=== PATIENT | female | born 1960 | race Caucasian/White ===

== ENCOUNTER → 2018-02-06 | Outpatient (CLI) | payer OTHER | LOC: LAB 17:52 → LAB SHORT 17:52 | DX: L03.116 Cellulitis of left lower limb (principal); Z86.14 Personal history of Methicillin resistant Staphylococcus aureus infection | CPT/HCPCS: 87070; 87075; 87077; 87186; 87205 ==

== ENCOUNTER → 2018-02-15 | Outpatient (CLI) | payer OTHER | LOC: LAB 12:26 → LAB SHORT 12:26 | DX: R15.0 Incomplete defecation (principal) | CPT/HCPCS: 87338 ==

== ENCOUNTER 2018-08-22 11:25 | Day surgery (SDC) | payer OTHER ==
[~2018-08-22] VITALS: Ht 162.6 cm; Wt 68.2 kg
[~2018-08-22 11:25] MED LIST: ALBU90OI61 INH; ATOR40TA PO; IBU600 MG PO; Loratadine10 MG PO; METH10 PO; OMEPRAZOLE MAGN20 MG PO; PROM25 PO; Senno8.6 MG PO; VITAMIN D31000 UNIT PO; [UNRECOGNIZED DRUG - CODE] PO
--- NOTE | 2018-08-22 12:34 | NUR ---
08/22/18 1234 Vanessa Garcia 3 MISSED IV RW BY JOANA VALVE RH BY RN COULD NOT FIND VEIN DEISY BY JOANA COULD NOT FIND JAYCE
== END 2018-08-22 13:51 | disposition home or self-care (01) ==
LOC: ORSCSDS 11:25
PROVIDERS: Student in an Organized Health Care Education/Training Program
PROC: 0DB58ZX Excision of Esophagus, Via Natural or Artificial Opening Endoscopic, Diagnostic (ICD-10-PCS; principal; 2018-08-22 12:45)
PROC: 0DBN8ZX Excision of Sigmoid Colon, Via Natural or Artificial Opening Endoscopic, Diagnostic (ICD-10-PCS; principal; 2018-08-22 12:45)
PROC: 0DB68ZX Excision of Stomach, Via Natural or Artificial Opening Endoscopic, Diagnostic (ICD-10-PCS; principal; 2018-08-22 12:45)
PROC: 0DB98ZX Excision of Duodenum, Via Natural or Artificial Opening Endoscopic, Diagnostic (ICD-10-PCS; principal; 2018-08-22 12:45)
PROC: 0DBP8ZX Excision of Rectum, Via Natural or Artificial Opening Endoscopic, Diagnostic (ICD-10-PCS; principal; 2018-08-22 12:45)
DX: R11.2 Nausea with vomiting, unspecified (principal); K21.0 Gastro-esophageal reflux disease with esophagitis; K44.9 Diaphragmatic hernia without obstruction or gangrene; D12.5 Benign neoplasm of sigmoid colon; K62.1 Rectal polyp; K62.3 Rectal prolapse; R15.0 Incomplete defecation; Z86.010 Personal history of colon polyps; J44.9 Chronic obstructive pulmonary disease, unspecified; B18.2 Chronic viral hepatitis C; I10 Essential (primary) hypertension; F11.20 Opioid dependence, uncomplicated; F17.210 Nicotine dependence, cigarettes, uncomplicated
CPT/HCPCS: 88305; 88342; J7120

== ENCOUNTER 2018-11-22 20:09 | Emergency (ER) | payer OTHER ==
[~2018-11-22] VITALS: Ht 160 cm; Wt 64.9 kg
[2018-11-22] MEDS ORDERED: EPIPEN0.3 MG/0.3 IM (20:54)
[2018-11-22] MEDS ORDERED: MIRALAX119 GM PO (20:55)
== END 2018-11-22 21:45 | disposition home or self-care (01) ==
LOC: ER 20:09
DX: M79.674 Pain in right toe(s) (principal); F32.9 Major depressive disorder, single episode, unspecified; F41.9 Anxiety disorder, unspecified; K21.9 Gastro-esophageal reflux disease without esophagitis; J44.9 Chronic obstructive pulmonary disease, unspecified; F17.210 Nicotine dependence, cigarettes, uncomplicated; M19.90 Unspecified osteoarthritis, unspecified site; M79.7 Fibromyalgia; Z87.01 Personal history of pneumonia (recurrent); Z88.5 Allergy status to narcotic agent; Z91.030 Bee allergy status; Z91.048 Other nonmedicinal substance allergy status; Z86.19 Personal history of other infectious and parasitic diseases; Z79.899 Other long term (current) drug therapy
CPT/HCPCS: 73660; 99283-25

== ENCOUNTER → 2019-03-12 | Outpatient (CLI) | payer OTHER ==
[~2019-03-12] MED LIST changes: +EPIPEN0.3 MG/0.3 IM; +MIRALAX119 GM PO
[2019-03-12 13:27] LABS: Source, Urine Clean Catch
[2019-03-12 18:38] LABS: Bilirubin, Urine Neg (Neg); Blood, Urine 1+ (Neg); Glucose Qualitative, Urine Neg (Neg); Ketones, Urine Neg (Neg); Leukocyte Esterase, Urine 1+ (Neg); Nitrite, Urine Neg (Neg); Protein, Urine 1+ (Neg); Urobilinogen, Urine NORM (Normal)
[2019-03-12 18:49] LABS: Appearance, Urine Hazy (Clear); Color, Urine Yellow (P-Yellow)
[2019-03-12 18:51] LABS: Bacteria Mod /hpf; Mucus Light (0-Heavy); Squamous Epithelial Cells Few /hpf (Few)
== END | disposition home or self-care (01) ==
LOC: LAB 13:25 → LAB SHORT 13:25
PROVIDERS: Nurse Practitioner Family
DX: R10.9 Unspecified abdominal pain (principal)
CPT/HCPCS: 81001

== ENCOUNTER → 2019-03-13 | Outpatient (CLI) | payer OTHER | END | disposition home or self-care (01) | LOC: PLD 07:46 → LAB SHORT 07:46 | DX: L60.2 Onychogryphosis (principal); B35.1 Tinea unguium | CPT/HCPCS: 88305; 88312 ==

== ENCOUNTER → 2019-05-28 | Outpatient (CLI) | payer OTHER ==
[2019-05-30 16:07] LABS: HPV 16 Negative (Negative); HPV 18 Negative (Negative); HPV OTHER HR TYPES Negative (Negative)
== END | disposition home or self-care (01) ==
LOC: LAB 19:05 → LAB SHORT 19:05
PROVIDERS: Nurse Practitioner Family
DX: Z12.4 Encounter for screening for malignant neoplasm of cervix (principal)
CPT/HCPCS: 87624; G0123

== ENCOUNTER → 2019-06-30 | Outpatient (CLI) | payer OTHER ==
[2019-07-01 13:42] LABS: Stool Occult Bld Immuno 1 Negative (NEGATIVE)
== END | disposition home or self-care (01) ==
LOC: LAB SHORT 12:00 → LAB 12:00
PROVIDERS: Nurse Practitioner Family
DX: Z12.11 Encounter for screening for malignant neoplasm of colon (principal)
CPT/HCPCS: G0328

== ENCOUNTER → 2020-06-18 | Outpatient (CLI) | payer OTHER ==
[2020-06-18 14:57] LABS: Appearance, Urine Cloudy (Clear); Blood, Urine 5+ (Neg); Color, Urine Brown (P-Yellow); Glucose Qualitative, Urine Neg (Neg); Ketones, Urine 1+ (Neg); Leukocyte Esterase, Urine 2+ (Neg); Nitrite, Urine Pos (Neg); Protein, Urine 3+ (Neg); Urobilinogen, Urine 1+ (Normal)
[2020-06-18 15:03] LABS: Bilirubin, Urine 1+ (Neg)
[2020-06-18 15:05] LABS: Bacteria Not Seen /hpf; Calcium Oxalate Crystals Few /hpf; Red Blood Cells, Urine TNTC /hpf (0-2); Squamous Epithelial Cells Few /hpf (Few)
== END ==
LOC: LAB SHORT 10:07
PROVIDERS: Nurse Practitioner Family
DX: R30.0 Dysuria (principal)
CPT/HCPCS: 81001; 87086

== ENCOUNTER → 2020-10-20 | Outpatient (CLI) | payer OTHER ==
[2020-10-20 12:12] LABS: Source, Urine Clean Catch
[2020-10-20 18:02] LABS: Appearance, Urine Cloudy (Clear); Blood, Urine 5+ (Neg); Color, Urine Brown (P-Yellow); Glucose Qualitative, Urine Neg (Neg); Ketones, Urine 1+ (Neg); Leukocyte Esterase, Urine 2+ (Neg); Nitrite, Urine Pos (Neg); Protein, Urine 4+ (Neg); Specific Gravity, Urine 1.025 (1.003-1.022); Urobilinogen, Urine 1+ (Normal)
[2020-10-20 18:42] LABS: Bilirubin, Urine 1+ (Neg)
[2020-10-20 18:44] LABS: Red Blood Cells, Urine TNTC /hpf (0-2)
[2020-10-20 18:46] LABS: Bacteria Many /hpf; Calcium Oxalate Crystals Many /hpf; Squamous Epithelial Cells Mod /hpf (Few)
== END | disposition home or self-care (01) ==
LOC: LAB 12:10 → LAB SHORT 12:10 → LAB FUT 10-18 15:00
PROVIDERS: Urology
DX: N13.5 Crossing vessel and stricture of ureter without hydronephrosis (principal)
CPT/HCPCS: 81001; 87086

== ENCOUNTER 2021-11-22 09:42 | Day surgery (SDC) | payer OTHER ==
[~2021-11-22] VITALS: Ht 160 cm; Wt 66.6 kg
[~2021-11-22 09:42] MED LIST changes: +ALBU90OI INH; +ALORA TOP; +ATORVASTATIN CA80 M1 PO; +BUTALB-CAFF-AC1 EACH PO; +DOCUZEN 8.6-501 EACH PO; +DOLOPHINE HCL PO; +IBUP600 PO; +LINZESS290 MCG PO; +OMEP20ER PO; +RIZATRIPTAN10 MG SL; +SYMBICORT 160-4.6 GM INH; +TRULANCE3 MG PO; +Vitamin B-650 MG PO; +ZYRTEC10 M2 PO
== END 2021-11-22 11:42 | disposition home or self-care (01) ==
LOC: ORSCSDS 09:42
PROVIDERS: Student in an Organized Health Care Education/Training Program
PROC: 0DBN8ZX Excision of Sigmoid Colon, Via Natural or Artificial Opening Endoscopic, Diagnostic (ICD-10-PCS; principal; 2021-11-22 11:00)
PROC: 0DBL8ZX Excision of Transverse Colon, Via Natural or Artificial Opening Endoscopic, Diagnostic (ICD-10-PCS; principal; 2021-11-22 11:00)
DX: Z12.11 Encounter for screening for malignant neoplasm of colon (principal); D12.3 Benign neoplasm of transverse colon; K63.5 Polyp of colon; K57.30 Diverticulosis of large intestine without perforation or abscess without bleeding; Z86.010 Personal history of colon polyps; I10 Essential (primary) hypertension; G47.33 Obstructive sleep apnea (adult) (pediatric); J44.9 Chronic obstructive pulmonary disease, unspecified; F17.210 Nicotine dependence, cigarettes, uncomplicated; Z79.899 Other long term (current) drug therapy
CPT/HCPCS: 88305; J2704; J7120

== ENCOUNTER → 2021-12-31 | Outpatient (CLI) | payer OTHER ==
[2021-12-31 12:45] LABS: Hematocrit 42.5 % (33.0-51.0); Hemoglobin 14.6 g/dL (11.5-16.0); Mean Corpuscular HGB 31.3 pg (26.0-34.0); Mean Corpuscular HGB Conc 34.4 g/dL (31.5-36.5); Mean Corpuscular Volume 91 fL (80-100); RDW Coefficient Variation 12.9 % (11.7-14.2); RDW Standard Deviation 42.5 fL (35.1-46.3); Red Blood Cell Count 4.67 M/mm3 (3.80-5.20); White Blood Cell Count 2.01 K/mm3 (4.00-11.30)
[2021-12-31 13:07] LABS: Bun/Creatinine Ratio 19.3 (12.0-20.0); Calcium, Blood 8.6 mg/dL (8.5-10.1); Creatinine, Blood 0.88 mg/dL (0.40-1.00); Potassium, Blood 3.6 mmol/L (3.5-5.5); Thyroid Stimulating Hormone 1.733 uIU/mL (0.360-4.800)
[2021-12-31 13:32] LABS: Mean Platelet Volume 10.5 fL (9.1-12.4); Platelet Count 111 K/mm3 (150-400)
[2021-12-31 13:40] LABS: BAND PERCENT MAN 7 % (0-8); BASOPHILS PERCENT MAN 0 % (0-2); EOSINOPHILS PERCENT MAN 0 % (0-6); LYMPHOCYTES ABSOLUTE MAN 0.78 K/mm3 (0.84-5.20); LYMPHOCYTES PERCENT MAN 39 % (21-46); MONOCYTES ABSOLUTE MAN 0.24 K/mm3 (0.16-1.47); MONOCYTES PERCENT MAN 12 % (4-13); NEUTROPHILS ABSOLUTE MAN 0.98 K/mm3 (1.96-9.15); SEG NEUTROPHILS PERCENT MAN 42 % (41-73); TOTAL CELLS COUNTED 100
== END | disposition home or self-care (01) ==
LOC: LAB SHORT 12:37
PROVIDERS: Physician Assistant Surgical
DX: R07.9 Chest pain, unspecified (principal); R53.83 Other fatigue
CPT/HCPCS: 80048; 84443; 84484; 85025; 85379

== ENCOUNTER → 2022-09-07 | Outpatient (CLI) | payer OTHER ==
[2022-09-08 16:10] LABS: HPV 16 Negative (Negative); HPV 18 Negative (Negative); HPV OTHER HR TYPES Negative (Negative)
== END | disposition home or self-care (01) ==
LOC: LAB SHORT 13:30 → LAB 13:30
PROVIDERS: Nurse Practitioner Family
DX: Z12.4 Encounter for screening for malignant neoplasm of cervix (principal)
CPT/HCPCS: 87624; 88175

== ENCOUNTER 2024-03-31 07:24 | Emergency (ER) | payer OTHER ==
[~2024-03-31] VITALS: Ht 165.1 cm; Wt 68.0 kg
[2024-03-31] MEDS ORDERED: HYDROmorphone HCl/Pf 1MG SYR IV ONE (08:05)
[2024-03-31] MEDS ORDERED: Ondansetron HCl 2 MG / ML 2ML Vial IV ONE (08:05)
[2024-03-31 08:25] LABS: Source, Urine Clean Catch
[2024-03-31 08:38] LABS: BASOPHILS ABSOLUTE AUTO 0.04 K/mm3 (0.00-0.23); BASOPHILS PERCENT AUTO 1 % (0-2); EOSINOPHILS ABSOLUTE AUTO 0.05 K/mm3 (0.00-0.68); EOSINOPHILS PERCENT AUTO 1 % (0-6); Hematocrit 44.2 % (33.0-51.0); Hemoglobin 14.9 g/dL (11.5-16.0); IMMATURE GRAN ABSOLUTE AUTO 0.01 K/mm3 (0.00-0.10); IMMATURE GRAN PERCENT AUTO 0 % (0-1); LYMPHOCYTES ABSOLUTE AUTO 1.77 K/mm3 (0.84-5.20); LYMPHOCYTES PERCENT AUTO 31 % (21-46); MONOCYTES ABSOLUTE AUTO 0.45 K/mm3 (0.16-1.47); MONOCYTES PERCENT AUTO 8 % (4-13); Mean Corpuscular HGB 30.3 pg (26.0-34.0); Mean Corpuscular HGB Conc 33.7 g/dL (31.5-36.5); Mean Corpuscular Volume 90 fL (80-100); Mean Platelet Volume 9.3 fL (9.1-12.4); NEUTROPHILS ABSOLUTE AUTO 3.33 K/mm3 (1.96-9.15); NEUTROPHILS PERCENT AUTO 59 % (41-73); Platelet Count 241 K/mm3 (150-400); RDW Coefficient Variation 12.9 % (11.7-14.2); RDW Standard Deviation 42.3 fL (35.1-46.3); Red Blood Cell Count 4.91 M/mm3 (3.80-5.20); White Blood Cell Count 5.65 K/mm3 (4.00-11.30)
[2024-03-31 08:46] LABS: Appearance, Urine Turbid (Clear); Bilirubin, Urine Neg (Neg); Blood, Urine 5+ (Neg); Color, Urine Red (P-Yellow); Glucose Qualitative, Urine Neg (Neg); Ketones, Urine Neg (Neg); Leukocyte Esterase, Urine 1+ (Neg); Nitrite, Urine Neg (Neg); Protein, Urine 3+ (Neg); Specific Gravity, Urine 1.025 (1.003-1.022); Urobilinogen, Urine 1+ (Normal)
[2024-03-31 08:54] LABS: Bacteria Rare /hpf; Red Blood Cells, Urine TNTC /hpf (0-2); Squamous Epithelial Cells Few /hpf (Few)
[2024-03-31 08:57] LABS: Albumin, Blood 3.7 g/dL (3.4-5.0); Bilirubin, Total 0.6 mg/dL (0.1-1.0); Bun/Creatinine Ratio 28.9 (12.0-20.0); Calcium, Blood 9.1 mg/dL (8.5-10.1); Creatinine, Blood 0.73 mg/dL (0.40-1.00); Globulin, Blood 3.7 g/dL (2.2-4.0); Potassium, Blood 4.4 mmol/L (3.5-5.5); Total Protein, Blood 7.4 g/dL (6.4-8.2)
[2024-03-31] MEDS ORDERED: Ketorolac Tromethamine 15mg Vial IV ONE (09:55)
[2024-03-31 10:12] VITALS: BP 165/98
== END 2024-03-31 10:14 | disposition home or self-care (01) ==
LOC: ER 07:24
PROVIDERS: Emergency Medicine
DX: N13.2 Hydronephrosis with renal and ureteral calculous obstruction (principal); R31.9 Hematuria, unspecified; N83.201 Unspecified ovarian cyst, right side; M06.9 Rheumatoid arthritis, unspecified; J45.909 Unspecified asthma, uncomplicated; G47.30 Sleep apnea, unspecified; G43.909 Migraine, unspecified, not intractable, without status migrainosus; G40.909 Epilepsy, unspecified, not intractable, without status epilepticus; K21.9 Gastro-esophageal reflux disease without esophagitis; J44.9 Chronic obstructive pulmonary disease, unspecified; Z88.7 Allergy status to serum and vaccine; Z91.038 Other insect allergy status; Z91.048 Other nonmedicinal substance allergy status; F17.210 Nicotine dependence, cigarettes, uncomplicated; Z79.51 Long term (current) use of inhaled steroids; Z79.899 Other long term (current) drug therapy
CPT/HCPCS: 74177; 80053; 81001; 83690; 85025; 87086; 96374-59; 96375; 99284-25; J1170; J1171; J1885; J2405; Q9967

== ENCOUNTER 2024-08-28 10:19 | Inpatient (IN) | payer OTHER ==
[~2024-08-28] VITALS: Ht 160 cm; Wt 60.6 kg
[2024-08-28 11:48] LABS: Hematocrit 44.8 % (33.0-51.0); Hemoglobin 15.5 g/dL (11.5-16.0); Mean Corpuscular HGB 30.8 pg (26.0-34.0); Mean Corpuscular HGB Conc 34.6 g/dL (31.5-36.5); Mean Corpuscular Volume 89 fL (80-100); Mean Platelet Volume 9.7 fL (9.1-12.4); Platelet Count 146 K/mm3 (150-400); RDW Coefficient Variation 12.4 % (11.7-14.2); RDW Standard Deviation 40.4 fL (35.1-46.3); Red Blood Cell Count 5.04 M/mm3 (3.80-5.20); White Blood Cell Count 5.47 K/mm3 (4.00-11.30)
[2024-08-28 11:50] LABS: Influenza A, PCR NEGATIVE (NEGATIVE); Influenza B, PCR NEGATIVE (NEGATIVE); Resp Syncytial Virus, PCR NEGATIVE (NEGATIVE); SARS-Cov-2 (COVID-19) PCR, MMC NEGATIVE (NEGATIVE)
[2024-08-28 12:16] LABS: Albumin, Blood 3.4 g/dL (3.4-5.0); Albumin/Globulin Ratio 0.8 (0.8-1.8); Bilirubin, Total 0.9 mg/dL (0.1-1.0); Bun/Creatinine Ratio 32.1 (12.0-20.0); Calcium, Blood 9.2 mg/dL (8.5-10.1); Creatinine, Blood 0.53 mg/dL (0.40-1.00); Globulin, Blood 4.4 g/dL (2.2-4.0); Potassium, Blood 3.8 mmol/L (3.5-5.5); Total Protein, Blood 7.8 g/dL (6.4-8.2)
[2024-08-28 12:57] LABS: BAND PERCENT MAN 6 % (0-8); BASOPHILS PERCENT MAN 0 % (0-2); EOSINOPHILS PERCENT MAN 0 % (0-6); LYMPHOCYTES % ATYPICAL MANUAL 1 % (0-0); LYMPHOCYTES PERCENT MAN 10 % (21-46); MONOCYTES ABSOLUTE MAN 0.16 K/mm3 (0.16-1.47); MONOCYTES PERCENT MAN 3 % (4-13); SEG NEUTROPHILS PERCENT MAN 80 % (41-73); TOTAL CELLS COUNTED 100
[2024-08-28 12:57] LABS: Source, Urine Clean Catch
[2024-08-28 13:01] LABS: Appearance, Urine Hazy (Clear); Blood, Urine 5+ (Neg); Color, Urine Amber (P-Yellow); Glucose Qualitative, Urine Neg (Neg); Ketones, Urine 4+ (Neg); Leukocyte Esterase, Urine 1+ (Neg); Nitrite, Urine Pos (Neg); Protein, Urine 4+ (Neg); Specific Gravity, Urine 1.025 (1.003-1.022); Urobilinogen, Urine 3+ (Normal)
[2024-08-28 13:24] LABS: Bilirubin, Urine 1+ (Neg)
[2024-08-28 13:25] LABS: Bacteria Many /hpf; Mucus Mod (0-Heavy); Red Blood Cells, Urine 25-50 /hpf (0-2); Squamous Epithelial Cells Few /hpf (Few)
[2024-08-28] MEDS ORDERED: CefTRIAXone Sodium 1,000 MG in NS 100 ML IV ONE (14:05)
[2024-08-28] MEDS ORDERED: Azithromycin 500 MG in NS 250 ML IV ONE (16:25)
[2024-08-28] MEDS ORDERED: Acetaminophen 500 MG Tab PO ONE (16:55)
[2024-08-28] MEDS ORDERED: NS 1,000 ML IV SCH (16:55)
[2024-08-28] MEDS ORDERED: Prochlorperazine Edisylate 10 mg Vial IV ONE (16:55)
[2024-08-28] MEDS ORDERED: DiphenhydrAMINE HCl 50 MG/ML 1ML Vial IV ONE (16:55)
[2024-08-28] MEDS ORDERED: Albuterol 2.5 MG/3 ML VIAL INH PRN (17:35)
[2024-08-28] MEDS ORDERED: Promethazine HCl 25 MG Tab PO PRN (17:35)
[2024-08-28] MEDS ORDERED: Acetaminophen 325 MG TABLET PO PRN (17:35)
[2024-08-28] MEDS ORDERED: FLU VACC TS2024-25(6MOS UP)/PF 45 MCG/0.5 ML SYRINGE IM SCH (17:40)
[2024-08-28] MEDS ORDERED: Acetamin/Butalbital/Caffeine Tab PO PRN (17:40)
[2024-08-28] MEDS ORDERED: Docusate Sodium/Senna 1 Tab PO PRN (17:40)
[2024-08-28] MEDS ORDERED: Mometasone/Formoterol MDI 200/5 mcg 13 GM INH SCH (17:55)
[2024-08-28 20:24] VITALS: BP 172/99
[2024-08-28] MEDS ORDERED: Lactobacil 2-S.Thermo-Bifido 1 1 Cap PO SCH (21:00)
[2024-08-28] MEDS ORDERED: METH10 PO (21:14)
--- NOTE | 2024-08-29 03:01 | NUR ---
PT MEDICATIONS SENT TO PHARMACY- PROMETHAZINE AND CYCLOBENZARINE. RECEIPT PLACED ON PT'S WHITEBOARD FOR PICKUP PRIOR TO DISCHARGE.
[2024-08-29] MEDS ORDERED: NS 250 ML IV PRN (03:20)
[2024-08-29 03:29] VITALS: BP 148/89
[2024-08-29 04:16] LABS: Hemoglobin 12.5 g/dL (11.5-16.0); Mean Corpuscular HGB 30.3 pg (26.0-34.0); Mean Corpuscular HGB Conc 33.8 g/dL (31.5-36.5); Mean Corpuscular Volume 90 fL (80-100); Mean Platelet Volume 9.6 fL (9.1-12.4); Platelet Count 136 K/mm3 (150-400); RDW Coefficient Variation 12.4 % (11.7-14.2); RDW Standard Deviation 40.9 fL (35.1-46.3); Red Blood Cell Count 4.12 M/mm3 (3.80-5.20); White Blood Cell Count 3.41 K/mm3 (4.00-11.30)
[2024-08-29 04:55] LABS: Albumin, Blood 2.5 g/dL (3.4-5.0); Albumin/Globulin Ratio 0.7 (0.8-1.8); Bilirubin, Total 0.4 mg/dL (0.1-1.0); Bun/Creatinine Ratio 38.8 (12.0-20.0); Calcium, Blood 8.3 mg/dL (8.5-10.1); Creatinine, Blood 0.44 mg/dL (0.40-1.00); Globulin, Blood 3.5 g/dL (2.2-4.0); Magnesium, Blood 1.9 mg/dL (1.6-2.4); Potassium, Blood 3.6 mmol/L (3.5-5.5)
[2024-08-29 04:57] LABS: BASOPHILS PERCENT MAN 0 % (0-2); EOSINOPHILS PERCENT MAN 0 % (0-6); LYMPHOCYTES % ATYPICAL MANUAL 2 % (0-0); LYMPHOCYTES ABSOLUTE MAN 1.67 K/mm3 (0.84-5.20); LYMPHOCYTES PERCENT MAN 47 % (21-46); MONOCYTES PERCENT MAN 6 % (4-13); NEUTROPHILS ABSOLUTE MAN 1.53 K/mm3 (1.96-9.15); SEG NEUTROPHILS PERCENT MAN 45 % (41-73); TOTAL CELLS COUNTED 100
[2024-08-29] MEDS ORDERED: Omeprazole 20 MG CapCR PO SCH (06:00)
--- NOTE | 2024-08-29 06:28 | NUR ---
SHIFT SUMMARY PT ADMITTED TO UNIT AT 2019. 2L NC MAINTAINED WITH CONTINUOUS PULSE OX IN PLACE- O2 SATS >92%. PT AMBULATES INDEPENDENTLY IN ROOM WITH O2. SLEPT LONG INTERVALS THROUGH THE NIGHT. SL TO LEFT AC WAS STARTED IN ED WITH ULTRASOUND- PER ED, SEVERAL INFILTRATED IV'S BEFORE THIS IV. SL FLUSHES EASILY. BED IN LOWEST POSITION, CALL LIGHT WITHIN REACH, SIDERAILS UP X2.
[2024-08-29 07:08] VITALS: BP 140/87
[2024-08-29] MEDS ORDERED: Polyethylene Glycol 3350 17 gm PO PRN (07:40)
[2024-08-29] MEDS ORDERED: Docusate Sodium/Senna 1 Tab PO PRN (07:40)
[2024-08-29] MEDS ORDERED: CefTRIAXone Sodium 1,000 MG in NS 100 ML IV SCH (09:00)
[2024-08-29] MEDS ORDERED: Loratadine 10 MG Tab PO SCH (09:00)
[2024-08-29] MEDS ORDERED: GuaiFENesin 600 MG TabCR PO SCH ×2 (09:00→21:00)
[2024-08-29] MEDS ORDERED: Azithromycin 500 MG in NS 250 ML IV SCH (09:00)
[2024-08-29] MEDS ORDERED: Atorvastatin 10 MG Tab PO SCH (09:00)
[2024-08-29] MEDS ORDERED: Atorvastatin 40 MG Tab PO SCH (09:00)
[2024-08-29] MEDS ORDERED: PyridOXINE HCL 50 MG TAB PO SCH (09:00)
[2024-08-29] MEDS ORDERED: Methadone HCL 10 MG TAB PO SCH (09:15)
[2024-08-29] MEDS ORDERED: Benzonatate 100 MG Cap PO PRN (13:05)
[2024-08-29 16:08] VITALS: BP 128/78
[2024-08-29] MEDS ORDERED: Docusate Sodium/Senna 1 Tab PO SCH (18:00)
--- NOTE | 2024-08-29 18:04 | NUR ---
SHIFT SUMMARY PATIENT A/OX4, ABLE TO MAKE NEEDS KNOWN. PLEASANT AND COOPERATIVE WITH STAFF. HOME ORDER OF METHADONE RESTARTED THIS AM. IV ABX INFUSED PER AUG. SPUTUM CULTURE OBTAINED AND SENT TO LAB. PATIENT CONTINUES WITH 2LPM SUPPLEMENTAL OXYGEN VIA NASAL CANNULA. ROOM AIR IS BASELINE. CONTINUOUS PULSE OX IN PLACE. RESPIRATORY THERAPY BROUGHT BIPAP TO BEDSIDE TO USE NIGHTLY. NO OTHER CONCERNS AT THIS TIME.
[2024-08-29 20:13] VITALS: BP 101/64
[2024-08-30 04:29] VITALS: BP 154/86
[2024-08-30 05:20] LABS: Hematocrit 34.4 % (33.0-51.0); Hemoglobin 11.9 g/dL (11.5-16.0); Mean Corpuscular HGB 30.8 pg (26.0-34.0); Mean Corpuscular HGB Conc 34.6 g/dL (31.5-36.5); Mean Corpuscular Volume 89 fL (80-100); Platelet Count 141 K/mm3 (150-400); RDW Coefficient Variation 12.4 % (11.7-14.2); RDW Standard Deviation 40.7 fL (35.1-46.3); Red Blood Cell Count 3.86 M/mm3 (3.80-5.20); White Blood Cell Count 3.61 K/mm3 (4.00-11.30)
--- NOTE | 2024-08-30 05:42 | NUR ---
SHIFT SUMMARY PT SLEPT INTERMITTENTLY DURING THE NIGHT. PT DID NOT TOLERATE BIPAP WELL- RT ADJUSTED SETTINGS MULTIPLE TIMES, AND PT ASKED TO HAVE IT REMOVED AT MIDNIGHT. 2LNC MAINTAINED WITH O2 SATS >90%. BED IN LOWEST POSITION, CALL LIGHT WITHIN REACH, SIDERAILS UP X2.
[2024-08-30 05:49] LABS: Albumin, Blood 2.7 g/dL (3.4-5.0); Anion Gap 8 mmol/L (3-11); Blood Urea Nitrogen 17 mg/dL (8-24); Bun/Creatinine Ratio 37.9 (12.0-20.0); CO2, Blood 28 mmol/L (21-32); Calcium, Blood 8.4 mg/dL (8.5-10.1); Chloride, Blood 106 mmol/L (98-108); Creatinine, Blood 0.45 mg/dL (0.40-1.00); Glomerular Filtration Rate 108 (60-); Glucose, Blood 88 mg/dL (70-99); Magnesium, Blood 1.9 mg/dL (1.6-2.4); Phosphorus, Blood 3.4 mg/dL (2.5-4.9); Potassium, Blood 3.8 mmol/L (3.5-5.5); Sodium, Blood 138 mmol/L (136-145)
[2024-08-30 07:09] VITALS: BP 152/88
[2024-08-30] MEDS ORDERED: Enoxaparin 40 MG/0.4 ML SYR SC SCH (09:00)
[2024-08-30 15:52] VITALS: BP 122/75
--- NOTE | 2024-08-30 18:26 | NUR ---
SHIFT SUMMARY PATIENT A/OX4, ABLE TO MAKE NEEDS KNOWN. PLEASANT AND COOPERATIVE WITH CARE. PATIENT ENCOURAGED TO AMBULATE THE HALLWAYS THIS AFTERNOON, PATIENT RELUCTANT BUT ABLE TO AMBULATE INDEPENDENTY. CONTINUES WITH 2 LPM OXYGEN VIA NASAL CANNULA. CONTINUES WITH IV ANTIBIOTICS. NO OTHER CONCERNS AT THIS TIME.
[2024-08-30 19:13] VITALS: BP 137/76
[2024-08-31 03:46] VITALS: BP 148/98
--- NOTE | 2024-08-31 06:06 | NUR ---
SHIFT SUMMARY PT WEANED FROM 2L NC TO 0.5L NC. CONTINUOUS PULSE ON MAINTAINED. PT ATTEMPTED TO USE BIPAP, BUT REFUSED IT SOON IT WAS PLACED. PT INDEPENDENT IN ROOM. SLEPT LONG INTERVALS THROUGH THE NIGHT. BED IN LOWEST POSITION, CALL LIGHT WITHIN REACH, SIDERAILS UP X2.
[2024-08-31 07:28] VITALS: BP 162/101
[2024-08-31 08:20] VITALS: BP 145/81
[2024-08-31] MEDS ORDERED: PredniSONE 20 MG Tab PO SCH (12:00)
[2024-08-31 16:17] VITALS: BP 143/76
--- NOTE | 2024-08-31 18:29 | NUR ---
SHIFT SUMMARY PATIENT A/OX4, ABLE TO MAKE NEEDS KNOWN. PLEASANT AND COOPERATIVE WITH CARE. PATIENT ON ROOM AIR, CONTINUOUS PULSE OX IN PLACE, SPO2 WNL. TESSALON PEARLS ADMINISTERED PER AUG. PATIENT COMPLAINING OF NAUSEA THIS MORNING WELL, NAUSEA MEDS ADMINSITERED PER AUG. PATIENT ABLE TO AMBULATE IN THE HALLWAY THIS AFTERNOON INDEPENDENTLY. SYTARTED ON PO PREDNISONE. PLAN TO DISCHARGE TOMORROW. NO OTHER CONCERNS AT THIS TIME.
[2024-08-31 19:08] VITALS: BP 147/91
[2024-08-31] MEDS ORDERED: Docusate Sodium/Senna 1 Tab PO SCH (21:00)
[2024-09-01 03:05] VITALS: BP 142/82
--- NOTE | 2024-09-01 05:55 | NUR ---
SHIFT SUMMARY PT SLEPT LONG INTERVALS DURING THE NIGHT. PT ON ROOM AIR WITH CONTINUOUS PULSE OX IN PLACE- O2 SATS WNL. PT INDEPENDENT IN ROOM. MEDICATED FOR HEADACHE WITH FIORECET X1, AND MEDICATED FOR NAUSEA WITH PHENERGAN X1- SEE EMAR. BED IN LOWEST POSITION, CALL LIGHT WITHIN REACH, SIDERAILS UP X2.
[2024-09-01 07:20] VITALS: BP 139/86
[2024-09-01] MEDS ORDERED: GUAI600T33 PO (12:14)
[2024-09-01] MEDS ORDERED: PRED20 PO (12:15)
--- NOTE | 2024-09-01 13:37 | NUR ---
DISCHARGE NOTE PATIENT EDUCATED ON DISCHARGE PAPERWORK AND NEW PRESCRIPTIONS. IV REMOVED. FAMILY WAS NOTIFIED BY PATIENT OF D/C. ESCORTED DOWN VIA WHEELCHAIR BY [employer] SUPERVISOR FAMILY NATIVIDAD BERMUDEZ. NO NEW QUESTIONS OR CONCERNS PRIOR TO D/C.
== END 2024-09-01 13:37 | disposition home or self-care (01) | DRG 193 ==
LOC: ER 10:19 → MEDS 10:20
PROVIDERS: Internal Medicine; Student in an Organized Health Care Education/Training Program; ADMIT Student in an Organized Health Care Education/Training Program
DX: J12.9 Viral pneumonia, unspecified (principal); J96.01 Acute respiratory failure with hypoxia; J44.0 Chronic obstructive pulmonary disease with (acute) lower respiratory infection; B18.9 Chronic viral hepatitis, unspecified; J44.1 Chronic obstructive pulmonary disease with (acute) exacerbation; N39.0 Urinary tract infection, site not specified; K76.0 Fatty (change of) liver, not elsewhere classified; K44.9 Diaphragmatic hernia without obstruction or gangrene; F11.90 Opioid use, unspecified, uncomplicated; M06.9 Rheumatoid arthritis, unspecified; F17.210 Nicotine dependence, cigarettes, uncomplicated; M79.7 Fibromyalgia; G40.909 Epilepsy, unspecified, not intractable, without status epilepticus; G43.909 Migraine, unspecified, not intractable, without status migrainosus; F41.9 Anxiety disorder, unspecified; F32.A Depression, unspecified; K21.00 Gastro-esophageal reflux disease with esophagitis, without bleeding; Z90.49 Acquired absence of other specified parts of digestive tract; Z98.890 Other specified postprocedural states; Z91.038 Other insect allergy status; Z88.7 Allergy status to serum and vaccine; Z88.8 Allergy status to other drugs, medicaments and biological substances; Z91.048 Other nonmedicinal substance allergy status; Z79.899 Other long term (current) drug therapy; D69.6 Thrombocytopenia, unspecified; Z71.6 Tobacco abuse counseling
CPT/HCPCS: 0241U; 36415; 71260; 74177; 80053; 80069; 81001; 83690; 83735; 84145; 85025; 85027; 87070; 87086; 87205; 93005; 93010; 94640; 94660; 94664; 94762; 96365-59; 96366; 96367; 96375-59; 99285-25; A9270; G0378; J0456; J0696; J0780; J1200; J1650; J7030; J7050; J7512; Q9967

== ENCOUNTER 2025-01-03 14:52 | Emergency (ER) | payer OTHER ==
[~2025-01-03] VITALS: Ht 160 cm; Wt 61.2 kg
[~2025-01-03 14:52] MED LIST changes: +GUAI600T33 PO; +Norco 5-325 Ta1 EACH PO; +PRED20 PO; +Robaxin750 MG PO
[2025-01-03 15:18] VITALS: BP 134/95
[2025-01-03 16:00] LABS: Source, Urine Clean Catch
[2025-01-03 16:01] LABS: BASOPHILS ABSOLUTE AUTO 0.04 K/mm3 (0.00-0.23); BASOPHILS PERCENT AUTO 1 % (0-2); EOSINOPHILS ABSOLUTE AUTO 0.09 K/mm3 (0.00-0.68); EOSINOPHILS PERCENT AUTO 1 % (0-6); Hematocrit 39.7 % (33.0-51.0); Hemoglobin 13.6 g/dL (11.5-16.0); IMMATURE GRAN ABSOLUTE AUTO 0.01 K/mm3 (0.00-0.10); IMMATURE GRAN PERCENT AUTO 0 % (0-1); LYMPHOCYTES ABSOLUTE AUTO 2.45 K/mm3 (0.84-5.20); LYMPHOCYTES PERCENT AUTO 39 % (21-46); MONOCYTES ABSOLUTE AUTO 0.53 K/mm3 (0.16-1.47); MONOCYTES PERCENT AUTO 9 % (4-13); Mean Corpuscular HGB Conc 34.3 g/dL (31.5-36.5); Mean Corpuscular Volume 90 fL (80-100); NEUTROPHILS ABSOLUTE AUTO 3.11 K/mm3 (1.96-9.15); NEUTROPHILS PERCENT AUTO 50 % (41-73); NRBC ABSOLUTE 0.00 K/mm3 (0.00-0.02); NRBC Auto 0.0 /100 WBC (0.0-0.2); Platelet Count 209 K/mm3 (150-400); RDW Coefficient Variation 12.2 % (11.7-14.2); RDW Standard Deviation 40.2 fL (35.1-46.3)
[2025-01-03 16:12] LABS: Bilirubin, Urine Neg (Neg); Color, Urine Yellow (P-Yellow); Glucose Qualitative, Urine Neg (Neg); Ketones, Urine 1+ (Neg); Leukocyte Esterase, Urine Neg (Neg); Protein, Urine 3+ (Neg); Specific Gravity, Urine 1.030 (1.003-1.022); Urobilinogen, Urine 1+ (Normal)
[2025-01-03] MEDS ORDERED: NS 1,000 ML IV SCH (16:20)
[2025-01-03] MEDS ORDERED: Ondansetron HCl 2 MG / ML 2ML Vial IV ONE (16:25)
[2025-01-03] MEDS ORDERED: Ketorolac Tromethamine 15mg Vial IV ONE (16:25)
[2025-01-03 16:34] LABS: Alanine Aminotransfer (ALT/SGP 20.0 U/L (12-78); Albumin, Blood 3.5 g/dL (3.4-5.0); Albumin/Globulin Ratio 1.0 (0.8-1.8); Anion Gap 10.0 mmol/L (3-11); Aspartate Aminotrans (AST/SGOT 21.0 U/L (12-37); Bilirubin, Total 0.3 mg/dL (0.1-1.0); Blood Urea Nitrogen 18.0 mg/dL (8-24); CO2, Blood 25.0 mmol/L (21-32); Calcium, Blood 8.4 mg/dL (8.5-10.1); Chloride, Blood 107.0 mmol/L (98-108); Creatinine, Blood 0.7 mg/dL (0.40-1.00); Globulin, Blood 3.5 g/dL (2.2-4.0); Glucose, Blood 115.0 mg/dL (70-99); Potassium, Blood 3.8 mmol/L (3.5-5.5); Sodium, Blood 138.0 mmol/L (136-145); Total Protein, Blood 7.0 g/dL (6.4-8.2)
[2025-01-03] MEDS ORDERED: Metoclopramide HCl 5MG / ML 2ML Vial IV ONE (17:20)
[2025-01-03] MEDS ORDERED: LIDO700A20 TOP (18:51)
== END 2025-01-03 18:45 | disposition home or self-care (01) ==
LOC: ER 14:52
PROVIDERS: Physician Assistant
DX: M94.0 Chondrocostal junction syndrome [Tietze] (principal); S30.861A Insect bite (nonvenomous) of abdominal wall, initial encounter; J45.909 Unspecified asthma, uncomplicated; G47.30 Sleep apnea, unspecified; K21.9 Gastro-esophageal reflux disease without esophagitis; J44.9 Chronic obstructive pulmonary disease, unspecified; F17.210 Nicotine dependence, cigarettes, uncomplicated; W57.XXXA Bitten or stung by nonvenomous insect and other nonvenomous arthropods, initial encounter; Z79.52 Long term (current) use of systemic steroids; Z79.51 Long term (current) use of inhaled steroids; Z79.899 Other long term (current) drug therapy; Z88.7 Allergy status to serum and vaccine; Z88.5 Allergy status to narcotic agent; Z91.030 Bee allergy status; Z88.8 Allergy status to other drugs, medicaments and biological substances
CPT/HCPCS: 74177; 80053; 81001; 84484; 85025; 87086; 93005; 93010; 96361; 96374-59; 96375; 99284-25; A9270; J1885; J2405; J2765; J7030; Q9967

== ENCOUNTER 2025-04-08 10:43 | Day surgery (SDC) | payer OTHER ==
[~2025-04-08] VITALS: Ht 160 cm; Wt 61.2 kg
[~2025-04-08 10:43] MED LIST changes: +ADVAIR HFA; +AMLO10 PO; +ATOR80; +ATOR80 PO; +Aspir 8181 MG PO; +Cyclobenzaprine5 MG PO; +DULO30 PO; +EZET10 PO; +IPRAT-ALBUT 0.5-3 ML INH; +LIDO700A20 TOP; +LISI10 PO; +MIRALAX17 GM PO; +Methadone In10 MG/ML PO; +TRIA15CR3 TOP; +VITAMIN D2 PO; +VOLTAREN
[2025-04-08 13:54] VITALS: BP 137/81
== END 2025-04-08 14:04 | disposition home or self-care (01) ==
LOC: ORSCSDS 10:43
PROVIDERS: Internal Medicine Gastroenterology
PROC: 0DB78ZX Excision of Stomach, Pylorus, Via Natural or Artificial Opening Endoscopic, Diagnostic (ICD-10-PCS; principal; 2025-04-08 12:00)
PROC: 0DB98ZX Excision of Duodenum, Via Natural or Artificial Opening Endoscopic, Diagnostic (ICD-10-PCS; principal; 2025-04-08 12:00)
PROC: 0DBL8ZX Excision of Transverse Colon, Via Natural or Artificial Opening Endoscopic, Diagnostic (ICD-10-PCS; principal; 2025-04-08 12:00)
DX: R10.31 Right lower quadrant pain (principal); K21.9 Gastro-esophageal reflux disease without esophagitis; Z86.0100 Personal history of colon polyps, unspecified; K59.09 Other constipation; D12.3 Benign neoplasm of transverse colon; K29.70 Gastritis, unspecified, without bleeding; K57.30 Diverticulosis of large intestine without perforation or abscess without bleeding; Z86.0101 Personal history of adenomatous and serrated colon polyps; I10 Essential (primary) hypertension; E78.5 Hyperlipidemia, unspecified; G47.31 Primary central sleep apnea; J44.9 Chronic obstructive pulmonary disease, unspecified; Z85.828 Personal history of other malignant neoplasm of skin; Z79.899 Other long term (current) drug therapy; Z79.82 Long term (current) use of aspirin
CPT/HCPCS: 88305; 88342; J2704

== ENCOUNTER 2025-05-14 15:36 | Emergency (ER) | payer OTHER ==
[~2025-05-14] VITALS: Ht 160 cm; Wt 59.0 kg
[2025-05-14 16:15] LABS: BASOPHILS ABSOLUTE AUTO 0.05 K/mm3 (0.00-0.23); BASOPHILS PERCENT AUTO 1 % (0-2); EOSINOPHILS ABSOLUTE AUTO 0.10 K/mm3 (0.00-0.68); EOSINOPHILS PERCENT AUTO 1 % (0-6); Hematocrit 45.6 % (33.0-51.0); Hemoglobin 15.4 g/dL (11.5-16.0); IMMATURE GRAN ABSOLUTE AUTO 0.03 K/mm3 (0.00-0.10); IMMATURE GRAN PERCENT AUTO 0 % (0-1); LYMPHOCYTES ABSOLUTE AUTO 2.35 K/mm3 (0.84-5.20); LYMPHOCYTES PERCENT AUTO 30 % (21-46); MONOCYTES ABSOLUTE AUTO 0.65 K/mm3 (0.16-1.47); MONOCYTES PERCENT AUTO 8 % (4-13); Mean Corpuscular HGB Conc 33.8 g/dL (31.5-36.5); Mean Corpuscular Volume 91 fL (80-100); NEUTROPHILS ABSOLUTE AUTO 4.72 K/mm3 (1.96-9.15); NEUTROPHILS PERCENT AUTO 60 % (41-73); NRBC ABSOLUTE 0.00 K/mm3 (0.00-0.02); NRBC Auto 0.0 /100 WBC (0.0-0.2); Platelet Count 243 K/mm3 (150-400); RDW Coefficient Variation 13.0 % (11.7-14.2); RDW Standard Deviation 43.5 fL (35.1-46.3)
[2025-05-14 16:48] LABS: Source, Urine Clean Catch
[2025-05-14 16:51] LABS: Color, Urine Yellow (P-Yellow); Glucose Qualitative, Urine Neg (Neg); Ketones, Urine 1+ (Neg); Leukocyte Esterase, Urine 1+ (Neg); Protein, Urine 3+ (Neg); Specific Gravity, Urine 1.025 (1.003-1.022); Urobilinogen, Urine 1+ (Normal)
[2025-05-14 16:52] LABS: Alanine Aminotransfer (ALT/SGP 22.0 U/L (12-78); Albumin, Blood 3.5 g/dL (3.4-5.0); Albumin/Globulin Ratio 1.0 (0.8-1.8); Anion Gap 8.0 mmol/L (3-11); Aspartate Aminotrans (AST/SGOT 17.0 U/L (12-37); Bilirubin, Total 0.3 mg/dL (0.1-1.0); Blood Urea Nitrogen 16.0 mg/dL (8-24); CO2, Blood 26.0 mmol/L (21-32); Calcium, Blood 9.1 mg/dL (8.5-10.1); Chloride, Blood 107.0 mmol/L (98-108); Creatinine, Blood 0.9 mg/dL (0.40-1.00); Globulin, Blood 3.4 g/dL (2.2-4.0); Glucose, Blood 115.0 mg/dL (70-99); Potassium, Blood 4.0 mmol/L (3.5-5.5); Sodium, Blood 137.0 mmol/L (136-145); Total Protein, Blood 6.9 g/dL (6.4-8.2)
[2025-05-14 17:14] LABS: Bilirubin, Urine 1+ (Neg)
[2025-05-14 17:15] LABS: Red Blood Cells, Urine 0-2 /hpf (0-2)
[2025-05-14] MEDS ORDERED: Morphine Sulfate 4 MG/1 ML Injection IV ONE (18:05)
[2025-05-14] MEDS ORDERED: Ondansetron HCl 2 MG / ML 2ML Vial IV ONE (18:05)
[2025-05-14] MEDS ORDERED: Ketorolac Tromethamine 15mg Vial IV ONE (18:05)
[2025-05-14] MEDS ORDERED: IBUP600 PO (18:55)
[2025-05-14 19:03] VITALS: BP 95/67
== END 2025-05-14 19:10 | disposition home or self-care (01) ==
LOC: ER 15:36
PROVIDERS: Emergency Medicine
DX: R10.A1 Flank pain, right side (principal); Z91.030 Bee allergy status; Z88.7 Allergy status to serum and vaccine; Z88.8 Allergy status to other drugs, medicaments and biological substances; Z79.899 Other long term (current) drug therapy; Z79.82 Long term (current) use of aspirin; E11.9 Type 2 diabetes mellitus without complications; F17.210 Nicotine dependence, cigarettes, uncomplicated; K21.9 Gastro-esophageal reflux disease without esophagitis
CPT/HCPCS: 74177; 80053; 81001; 85025; 87086; 96374-59; 96375; 99284-25; J1885; J2270; J2405; Q9967